=== PATIENT | female | born 1990 | race Caucasian/White ===

== ENCOUNTER 2020-06-14 10:59 | Outpatient (CLI) | payer OTHER ==
[2020-06-14 15:12] LABS: BASOPHILS % (AUTO) 0.6 %; EOSINOPHILS # (AUTO) 0.1 10^3/uL (0.0-0.7); EOSINOPHILS % (AUTO) 0.9 %; HCT - HEMATOCRIT 40.3 % (37.0-47.0); LYMPHOCYTES # (AUTO) 1.6 10^3/uL (1.5-3.5); LYMPHOCYTES % (AUTO) 29.1 %; MEAN CORPUSCULAR HEMOGLOBIN 31.1 pg (27.0-31.0); MEAN CORPUSCULAR HGB CONC 32.3 g/dL (32.0-36.0); MEAN CORPUSCULAR VOLUME 96.4 fL (81.0-99.0); MONOCYTES # (AUTO) 0.5 10^3/uL (0.0-1.0); MONOCYTES % (AUTO) 8.8 %; NEUTROPHILS # (AUTO) 3.3 10^3/uL (1.5-6.6); NEUTROPHILS % (AUTO) 60.4 %; PLT - PLATELET COUNT 288 10^3/uL (130-450); RED BLOOD COUNT 4.18 10^6/uL (4.20-5.40); RED CELL DISTRIBUTION WIDTH 12.5 % (12.0-15.0); WHITE BLOOD COUNT 5.4 x10^3/uL (4.8-10.8)
[2020-06-14 15:50] LABS: ALBUMIN 4.6 g/dL (3.2-5.5); ALBUMIN/GLOBULIN RATIO 1.4 (1.0-2.2); ALKALINE PHOSPHATASE 48 IU/L (42-121); ALT ALANINE AMINOTRANSFERASE 27 IU/L (10-60); AST ASPARTATE AMINOTRANSFERASE 26 IU/L (10-42); BILIRUBIN,TOTAL 1.1 mg/dL (0.2-1.0); BUN - BLOOD UREA NITROGEN 15 mg/dL (6-20); CALCIUM 9.5 mg/dL (8.5-10.3); CARBON DIOXIDE - CO2 23 mmol/L (21-32); CHLORIDE 103 mmol/L (101-111); CHOL/HDL RATIO 2.7 (<4.4); CHOLESTEROL 202 mg/dL; CREATININE 0.7 mg/dL (0.4-1.0); GFR - MDRD 97 (>89); GLUCOSE 102 mg/dL (70-100); HDL CHOLESTEROL 76 mg/dL; LDL CHOLESTEROL,CALCULATED 106 mg/dL; LDL/HDL RATIO 1.4 (<4.4); POTASSIUM 3.9 mmol/L (3.5-5.0); SODIUM 136 mmol/L (135-145); TOTAL PROTEIN 7.8 g/dL (6.7-8.2); TRIGLYCERIDES 100 mg/dL; VLDL CHOLESTEROL 20 mg/dL
[2020-06-14 16:26] LABS: THYROID STIMULATING HORMONE 1.15 uIU/mL (0.34-5.60)
== END 2020-06-14 11:00 | disposition home or self-care (01) ==
LOC: LAB.S 10:59
PROVIDERS: ATTEND Registered Nurse
DX: E78.5 Hyperlipidemia, unspecified (principal); J42 Unspecified chronic bronchitis
CPT/HCPCS: 36415; 80053; 80061; 83721; 84443; 85025

== ENCOUNTER 2021-01-18 08:00 | Outpatient (CLI) | payer OTHER ==
[2021-01-18 16:35] LABS: BILIRUBIN,URINE NEGATIVE (NEGATIVE); GLUCOSE, URINE (UA) NEGATIVE (NEGATIVE); KETONES,URINE (UA) NEGATIVE (NEGATIVE); LEUKOCYTE ESTERASE, URINE NEGATIVE (NEGATIVE); NITRITE,URINE POSITIVE (NEGATIVE); OCCULT BLOOD,URINE TRACE-INTA (NEGATIVE); PH,URINE 5.5 PH (5.0-7.5); PROTEIN,URINE NEGATIVE (NEGATIVE); UROBILINOGEN,URINE 0.2 (NORMAL) E.U./dL (NORMAL)
[2021-01-18 16:44] LABS: CLARITY,URINE CLEAR (CLEAR)
[2021-01-18 16:55] LABS: BACTERIA,URINE Moderate /HPF (None Seen); RBC,URINE None Seen /HPF (0-5); SQUAMOUS EPITHELIAL CELL,UR MOD Squamous (<= Few); WBC,URINE 0-3 /HPF (0-5)
== END 2021-01-18 23:59 | disposition home or self-care (01) ==
LOC: LAB 08:00
PROVIDERS: ATTEND Nurse Practitioner Obstetrics & Gynecology
DX: Z32.01 Encounter for pregnancy test, result positive (principal)
CPT/HCPCS: 81001; 87086

== ENCOUNTER 2021-01-24 16:06 | Outpatient (CLI) | payer OTHER ==
--- NOTE | 2021-01-25 08:43 | Ultrasound Report ---
PROCEDURE: OB First Trimester w/TV INDICATIONS: POSTIVIE TEST OUTSIDE/PRIOR DATING DATA: Last menstrual period (LMP): December 07, 2020. LMP-based estimated date of delivery (BOLA): September 13, 2021. First dating scan (date and location): [facility]; January 25, 2021. Estimated date of delivery (BOLA) from first dating scan: September 15, 2021. The below data below was generated using the ultrasound BOLA of September 15, 2021 TECHNIQUE: Real-time scanning was performed of the fetus and maternal pelvic organs, with image documentation. Endovaginal scanning was also performed to better visualize the fetus and maternal ovaries. COMPARISON: FINDINGS: Embryo: The crown-rump length measures 7 mm, compatible with a 6 week, 4 day gestation. Heart rate: 123 bpm. Measurement variability in dating: +/- 4 weeks by LMP, +/- 7 days by mean sac diameter (use before 6 weeks gestation if crown-rump length not able to be measured), +/- 5 days by crown-rump length (6-12 weeks gestation). Maternal organs: A 1.2 x 0.9 x 0.7 cm hypoechoic area is seen adjacent to the gestational sac, compatible subchorionic hemorrhage. A predominantly isoechoic lesion is seen within the right ovary, measuring up to 2 cm, which may refl ect a corpus luteum. A hypoechoic lesion is seen within the left ovary, measuring up to 1.7 cm, most consistent with a cys t. IMPRESSION: 1.Early single live intrauterine gestation as detailed above. Reviewed by: Blayne Garcia MD on 01/25/2021 8:42 AM PDT Approved by: Blayne Garcia MD on 01/25/2021 8:42 AM PDT Station ID: [id number]
== END 2021-01-24 16:07 | disposition home or self-care (01) ==
LOC: DI 16:06
PROVIDERS: ATTEND Nurse Practitioner Obstetrics & Gynecology
DX: Z32.01 Encounter for pregnancy test, result positive (principal)

== ENCOUNTER 2021-02-15 16:35 | Outpatient (CLI) | payer OTHER ==
[2021-02-15 23:03] LABS: CHLAMYDIA TRACHOMATIS DNA NEGATIVE (NEGATIVE); NEISSERIA GONORRHOEAE DNA NEGATIVE (NEGATIVE); TRICHOMONAS VAGINALIS DNA NEGATIVE (NEGATIVE)
== END 2021-02-15 16:36 | disposition home or self-care (01) ==
LOC: LAB 16:35 → LAB.R 16:36
PROVIDERS: ATTEND Nurse Practitioner Obstetrics & Gynecology
DX: Z11.3 Encounter for screening for infections with a predominantly sexual mode of transmission (principal)
CPT/HCPCS: 87491; 87591; 87661

== ENCOUNTER 2021-02-20 09:57 | Outpatient (CLI) | payer OTHER ==
[2021-02-20 10:24] LABS: BASOPHILS # (AUTO) 0.1 10^3/uL (0.0-0.1); BASOPHILS % (AUTO) 0.5 %; EOSINOPHILS # (AUTO) 0.1 10^3/uL (0.0-0.7); EOSINOPHILS % (AUTO) 0.7 %; HCT - HEMATOCRIT 39.7 % (37.0-47.0); HGB - HEMOGLOBIN 13.6 g/dL (12.0-16.0); LYMPHOCYTES # (AUTO) 1.9 10^3/uL (1.5-3.5); LYMPHOCYTES % (AUTO) 18.1 %; MEAN CORPUSCULAR HGB CONC 34.3 g/dL (32.0-36.0); MEAN CORPUSCULAR VOLUME 93.4 fL (81.0-99.0); MEAN PLATELET VOLUME 10.8 fL (7.9-10.8); MONOCYTES # (AUTO) 0.7 10^3/uL (0.0-1.0); MONOCYTES % (AUTO) 6.6 %; NEUTROPHILS # (AUTO) 7.6 10^3/uL (1.5-6.6); NEUTROPHILS % (AUTO) 73.7 %; PLT - PLATELET COUNT 314 10^3/uL (130-450); RED BLOOD COUNT 4.25 10^6/uL (4.20-5.40); RED CELL DISTRIBUTION WIDTH 12.5 % (12.0-15.0); WHITE BLOOD COUNT 10.3 x10^3/uL (4.8-10.8)
[2021-02-20 18:01] LABS: CHLAMYDIA TRACHOMATIS DNA NEGATIVE (NEGATIVE); NEISSERIA GONORRHOEAE DNA NEGATIVE (NEGATIVE); TRICHOMONAS VAGINALIS DNA NEGATIVE (NEGATIVE)
[2021-02-21 09:21] LABS: HEPATITIS B SURFACE ANTIGEN NON-REACTIVE (NON-REACTIVE)
[2021-02-21 09:22] LABS: HEPATITIS C ANTIBODY NON-REACTIVE (NON-REACTIVE)
[2021-02-21 15:16] LABS: HIV AG/AB 4TH GEN NON-REACTIVE (NON-REACTIVE)
== END 2021-02-20 09:58 | disposition home or self-care (01) ==
LOC: LAB 09:57
PROVIDERS: ATTEND Nurse Practitioner Obstetrics & Gynecology
DX: Z36.89 Encounter for other specified antenatal screening (principal)
CPT/HCPCS: 36415; 85025; 86592; 86762; 86787; 86803; 86850; 86900; 86901; 87340; 87389; 87491; 87591; 87661

== ENCOUNTER 2021-03-31 13:29 | Outpatient (CLI) | payer OTHER ==
[2021-04-03 09:01] LABS: AFP MOM 0.63; AGE RISK DOWN SYNDROME 1 IN 442; CALC'D GESTATIONAL AGE 16.3 weeks; CIGARETTE SMOKER? NOT GIVEN; DONOR AGE: EGG RETRIEVAL NOT GIVEN; DONOR EGG NO; ESTRIOL MOM 1.07; HCG MOM 0.56; HX OF NEURAL TUBE DEFECTS NO; INHIBIN A MOM 0.56; INSULIN DEPEND DIABETIC NO; MATERNAL WEIGHT 154 lbs; MSS DOWN SYNDROME RISK <1 IN 5000; MSS3 TRISOMY 18 RISK <1 IN 5000; NUMBER OF FETUSES 1; PREV PREGNANCY DOWN SYND NO; RISK FOR ONTD <1 IN 5000
== END 2021-03-31 13:30 | disposition home or self-care (01) ==
LOC: LAB 13:29
PROVIDERS: ATTEND Nurse Practitioner Obstetrics & Gynecology
DX: Z36.8A Encounter for antenatal screening for other genetic defects (principal)
CPT/HCPCS: 36415; 81511

== ENCOUNTER 2021-04-26 12:32 | Outpatient (CLI) | payer OTHER ==
--- NOTE | 2021-04-26 16:56 | Ultrasound Report ---
PROCEDURE: OB Detailed Eval INDICATIONS: SUPERVISION NORMAL OUTSIDE/PRIOR DATING DATA: Last menstrual period (LMP): 12/07/2020. LMP-based estimated date of delivery (BOLA): 09/13/2021. First dating scan (date and location): 01/24/2021. Estimated date of delivery (BOLA) from first dating scan: 09/15/2021. The below data below was generated using the ultrasound BOLA of 09/15/2021 TECHNIQUE: Real-time scanning was performed of the fetus, with image documentation and biometric measurements. Endovaginal scanning: Not performed. COMPARISON: Ultrasound 01/24/2021. FINDINGS: General: A single living intrauterine gestation is present. Presentation: Variable, transverse Placenta: Placental position is anterior, without previa. Amniotic fluid index: 12.5 cm, normal for gestational age. Largest pocket 3.6 cm. heart rate: 155 beats per minute. Maternal cervical canal: 5.3 cm long; normal length is 2.5 cm or more. biometrics: Biparietal diameter: 4.3 cm, 19 weeks 1 day Head circumference: 17.3 cm, 19 weeks 6 days Abdominal circumference: 15.2 cm, 20 weeks 3 days Femur length: 3.3 cm, 20 weeks 1 day Estimated gestational age from initial scan: 19 weeks 5 days Composite gestational age from present scan: 19 weeks 6 days Estimated weight and percentile: 339 g, 74th percentile Measurement variability in biometric dating: +/- 10 days from 12-20 weeks gestation, +/- 2 weeks from 20-30 weeks gestation, +/- 3 weeks at 30 weeks gestation or later. Anatomic survey: Neuro: Ventricles are normal at less than 10 mm. Cisterna magna is normal at 3-11 mm. Cerebellum i s normal in size and morphology. Nuchal skin fold: Normal at less than 6 mm between 14 and 20 weeks gestational age. Face: Nose and lips, facial profile are normal. Spine: Not well seen. Heart: 4-chambered heart is present. Outflow tracts not well seen. Diaphragm: Diaphragm is intact. Stomach: Left-sided stomach is present. Kidneys: No hydronephrosis. Normal is less than 5 mm in 2nd trimester, less than 7 mm in 3rd trimester. Cord: 3 vessel cord has orthotopic insertion. Bladder: Normal in size. Extremities: All 4 extremities are visualized. Right corpus luteum measuring 1.9 cm. Left ovarian cyst measuring 1.4 cm. IMPRESSION: 1. Cooper living intrauterine at 19 weeks 6 days based on today's ultrasound. This is co ncordant with the first trimester ultrasound. There is expected interval growth. Fetus is in the 74th percentile for weight. 2. Normal placenta and amniotic fluid. 3. The spine and cardiac outflow tracts are not well seen. Otherwise normal anatomic surv ey. Recommend follow-up OB ultrasound. Reviewed by: Huan Abraham MD on 04/26/2021 4:55 PM PST Approved by: Huan Abraham MD on 04/26/2021 4:55 PM PST Station ID: [id number]
== END 2021-04-26 12:33 | disposition home or self-care (01) ==
LOC: DI 12:32
PROVIDERS: ATTEND Nurse Practitioner Obstetrics & Gynecology
DX: Z34.92 Encounter for supervision of normal pregnancy, unspecified, second trimester (principal); Z3A.19 19 weeks gestation of pregnancy

== ENCOUNTER 2021-05-10 14:48 | Outpatient (CLI) | payer OTHER ==
--- NOTE | 2021-05-11 12:12 | Ultrasound Report ---
PROCEDURE: OB F/U or Repeat INDICATIONS: SUPERVISION OF NORMAL OUTSIDE/PRIOR DATING DATA: Last menstrual period (LMP): 12/07/2020. LMP-based estimated date of delivery (BOLA): 09/13/2021. First dating scan (date and location): 01/24/2021. Estimated date of delivery (BOLA) from first dating scan: 09/15/2021. The below data below was generated using the study generated BOLA of 09/15/2021 TECHNIQUE: Real-time scanning was performed of the fetus, with image documentation and biometric measurements. Endovaginal scannin indicated COMPARISON: 04/26/2021 and 01/24/2021 FINDINGS: General: A single living intrauterine gestation is present. Presentation: Breech Placenta: Placental position is anterior, without previa. Amniotic fluid index: 13.9 cm, 3.9 for gestational age. heart rate: 145 beats per minute. Maternal cervical canal: 5 cm long; normal length is 2.5 cm or more. Estimated gestational age from initial scan: 21 weeks, 5 days. Other: spine and outflow tracts are visualized and are within normal limits. chest, stoma ch, bilateral kidneys and urinary bladder are visualized and are within normal limits. IMPRESSION: 1. Single live intrauterine with fetus in breech presentation. heart rate is 145 bpm. Normal amount of amniotic fluid with SUJATHA was 13.9 cm. 2. Normal-appearing spine and outflow tracts on the current study. Reviewed by: Del Newton MD on 05/11/2021 12:10 PM PST Approved by: Del Newton MD on 05/11/2021 12:10 PM PST Station ID: [id number]
== END 2021-05-10 14:49 | disposition home or self-care (01) ==
LOC: DI 14:48
PROVIDERS: ATTEND Nurse Practitioner Obstetrics & Gynecology
DX: O32.1XX0 Maternal care for breech presentation, not applicable or unspecified (principal); Z36.89 Encounter for other specified antenatal screening; Z3A.21 21 weeks gestation of pregnancy

== ENCOUNTER 2021-08-18 17:00 | Outpatient (CLI) | payer OTHER | END 2021-08-18 23:59 | disposition home or self-care (01) | LOC: LAB.WC 17:00 | PROVIDERS: ATTEND Obstetrics & Gynecology | DX: Z36.85 Encounter for antenatal screening for Streptococcus B (principal) | CPT/HCPCS: 87797 ==

== ENCOUNTER 2021-08-19 21:19 | Outpatient (CLI) | payer OTHER ==
[2021-08-19 21:54] LABS: HCT - HEMATOCRIT 32.9 % (37.0-47.0); HGB - HEMOGLOBIN 10.6 g/dL (12.0-16.0); MEAN CORPUSCULAR HEMOGLOBIN 28.6 pg (27.0-31.0); MEAN CORPUSCULAR HGB CONC 32.2 g/dL (32.0-36.0); MEAN CORPUSCULAR VOLUME 88.7 fL (81.0-99.0); MEAN PLATELET VOLUME 12.2 fL (7.9-10.8); RED BLOOD COUNT 3.71 10^6/uL (4.20-5.40)
[2021-08-19 22:07] LABS: ALBUMIN 3.2 g/dL (3.2-5.5); ALBUMIN/GLOBULIN RATIO 0.9 (1.0-2.2); BILIRUBIN,TOTAL 0.4 mg/dL (0.2-1.0); CREATININE 0.6 mg/dL (0.4-1.0); POTASSIUM 3.7 mmol/L (3.5-5.0); TOTAL PROTEIN 6.8 g/dL (6.7-8.2)
[2021-08-19 22:41] LABS: RUPTURE OF MEMBRANES PLUS NEGATIVE (NEGATIVE)
--- NOTE | 2021-08-19 22:51 | PROVIDER PROGRESS NOTE ---
- HPI Chief Complaint: Leakage of vaginal fluid - Exam GEN: NAD CV: Tachycardic Resp: Breathing unlabored Abd: soft, nt : Speculum- no pooling, ROMPlus collected and negative Ext: +1 edema - Procedures OB Procedure Performed: NST Diagnosis/Indication for NST: labor NST Procedure: EFM: 130s, moderate variability, positive 15x15 accelerations, no decelerations [place]: one contraction Cat 1/NST reactive Service Date of procedure: 08/19/21 - Plan Plan: 31yo at 36.3w presenting with leaking fluid this morning and not sure if it was discharge. Occasional mild contractions. Denies vaginal bleeding. Good FM. Denies headache, visual changes, abdominal pains. - False labor, membranes intact - BP 140s/90s. Labs benign, follow up PCR. Follow up appt this week, recheck BP. - NST reactive - Discharge to home, labor and preeclampsia precautions
[2021-08-19 22:59] LABS: CREATININE,URINE 67.2 mg/dL; PROTEIN/CREATININE RATIO,URINE 0.2 (<=0.2)
[2021-08-19 23:23] VITALS: BP 125/80
== END 2021-08-19 22:53 | disposition home or self-care (01) ==
LOC: WFO 21:19 → FBP 21:20 → WFO 22:53
PROVIDERS: ATTEND Obstetrics & Gynecology
DX: O47.03 False labor before 37 completed weeks of gestation, third trimester (principal); Z3A.36 36 weeks gestation of pregnancy
CPT/HCPCS: 36415; 80053; 82570; 84112; 84156; 85027; 99215

== ENCOUNTER 2021-09-04 17:00 | Inpatient (IN) | payer OTHER ==
[2021-09-04 17:23] LABS: BILIRUBIN,URINE NEGATIVE (NEGATIVE); GLUCOSE, URINE (UA) NEGATIVE (NEGATIVE); KETONES,URINE (UA) NEGATIVE (NEGATIVE); LEUKOCYTE ESTERASE, URINE NEGATIVE (NEGATIVE); NITRITE,URINE NEGATIVE (NEGATIVE); OCCULT BLOOD,URINE NEGATIVE (NEGATIVE); PH,URINE 5.5 PH (5.0-7.5); PROTEIN,URINE NEGATIVE (NEGATIVE); UROBILINOGEN,URINE 0.2 (NORMAL) E.U./dL (NORMAL)
[2021-09-04 17:27] LABS: BASOPHILS % (AUTO) 0.2 %; EOSINOPHILS % (AUTO) 0.3 %; HCT - HEMATOCRIT 34.5 % (37.0-47.0); HGB - HEMOGLOBIN 11.2 g/dL (12.0-16.0); LYMPHOCYTES # (AUTO) 1.7 10^3/uL (1.5-3.5); LYMPHOCYTES % (AUTO) 16.8 %; MEAN CORPUSCULAR HEMOGLOBIN 28.2 pg (27.0-31.0); MEAN CORPUSCULAR HGB CONC 32.5 g/dL (32.0-36.0); MEAN CORPUSCULAR VOLUME 86.9 fL (81.0-99.0); MONOCYTES # (AUTO) 0.8 10^3/uL (0.0-1.0); MONOCYTES % (AUTO) 7.7 %; NEUTROPHILS # (AUTO) 7.6 10^3/uL (1.5-6.6); NEUTROPHILS % (AUTO) 73.8 %; PLT - PLATELET COUNT 249 10^3/uL (130-450); RED BLOOD COUNT 3.97 10^6/uL (4.20-5.40); RED CELL DISTRIBUTION WIDTH 14.1 % (12.0-15.0); WHITE BLOOD COUNT 10.3 x10^3/uL (4.8-10.8)
[2021-09-04 17:28] LABS: CLARITY,URINE CLEAR (CLEAR)
[2021-09-04 17:33] LABS: CREATININE,URINE 111.6 mg/dL; PROTEIN/CREATININE RATIO,URINE 0.1 (<=0.2)
[2021-09-04 17:38] LABS: ALBUMIN 3.2 g/dL (3.2-5.5); ALBUMIN/GLOBULIN RATIO 0.8 (1.0-2.2); BILIRUBIN,TOTAL 0.5 mg/dL (0.2-1.0); CALCIUM 9.9 mg/dL (8.5-10.3); CREATININE 0.6 mg/dL (0.4-1.0); POTASSIUM 3.8 mmol/L (3.5-5.0); TOTAL PROTEIN 7.3 g/dL (6.7-8.2)
[2021-09-04] MEDS ORDERED: CARBOPROST TROMETHAMINE 250 MCG/ML AMP IM PRN (19:15)
[2021-09-04] MEDS ORDERED: hydrALAZINE INJ 20 MG/ML VIAL IVP PRN ×2 (19:15)
[2021-09-04] MEDS ORDERED: NIFEdipine 10 MG CAPSULE PO PRN (19:15)
[2021-09-04] MEDS ORDERED: LABETALOL 20 MG/4 ML SYRINGE IVP PRN ×3 (19:15)
[2021-09-04] MEDS ORDERED: LIDOCAINE-MPF 1% 30 ML VIAL ID PRN (19:15)
[2021-09-04] MEDS ORDERED: fentaNYL 100 MCG/2 ML VIAL IVP PRN (19:15)
[2021-09-04] MEDS ORDERED: miSOPROStoL 200 MCG TABLET BC PRN (19:15)
[2021-09-04] MEDS ORDERED: SODIUM CHLORIDE FLUSH 0.9% 10 ML SYRINGE IVP PRN (19:15)
[2021-09-04] MEDS ORDERED: miSOPROStoL 200 MCG TABLET PR PRN (19:15)
[2021-09-04] MEDS ORDERED: TRANEXAMIC ACID IN NACL 1,000 MG/100 ML BAG IV PRN (19:15)
[2021-09-04] MEDS ORDERED: TERBUTALINE 1 MG/ML VIAL SUBQ PRN (19:15)
[2021-09-04] MEDS ORDERED: OXYTOCIN 10 UNIT/ML VIAL IM PRN (19:15)
[2021-09-04] MEDS ORDERED: OXYTOCIN/SODIUM CHLORIDE 500 ML IV PRN (19:15)
--- NOTE | 2021-09-04 19:21 | HISTORY & PHYSICAL EXAMINATION ---
Admit History - Visit Reason Visit Reason: Other (Elevated Blood pressure Patient was sent from clinic by Dr. Parrish for elevated blood pressures noted. She has no complaints. She denies headaches vision changes or abdominal pain. She was noted to have elevated blood pressures 2 weeks ago when she presented to labor and delivery to rule out r) - : 1 Parity: 0 Care: positive: [facility] Risk/History: positive: None Complications This : positive: None - Mother's Labs Mother's RH: positive: Positive GBS: positive: Group B Step Negative - Other Maternal History Other Maternal History: Past medical historyasthma? Past surgical history wisdom tooth extraction Allergies- no known drug allergies A+ Rubella- immune RPR- negative Hep B- negative HIV- negative GBS- negative 1 hr- 128 Meds/Allgy - Allergies Allergies/Adverse Reactions: Allergies Allergy/AdvReac Type Severity Reaction Status Date / Time cinnamon Allergy Anaphylaxis Verified 09/04/21 18:10 Physical - Abdominal Exam Vital Signs: Temp Pulse Resp BP Pulse Ox 99.2 F 105 H 18 115/81 H 09/04/21 17:15 09/04/21 17:15 09/04/21 17:15 09/04/21 18:25 - Monitoring Strip Review: positive: Category I - Presentation Presentation: positive: Vertex - Vaginal Exam Membranes: positive: Membranes intact Dilation (in cm): 1 Effacement (%): 25 Station: positive: -3 Cervical Position: positive: Midposition Plan for Labor - Plan For Labor Plan for Labor: . 31-year-old G1, P0 at 38 weeks 5 days with gestational hypertension admitted for induction of labor #Induction of labor-SVE 1/25%/-3, confirmed cephalic on bedside ultrasound. Plan for Aviles bulb placement. #Gestational hypertension-Based on elevated blood pressures of greater than 140s over 90s on 2 occasions. Blood pressures currently within normal limits. I discussed the recommendation for induction of labor after 37 weeks for gestational hypertension with the patient. She is agreeable to the plan. We will continue to monitor blood pressures. Labs within normal limits. #38 weeks gestation- GBS negative, induction of labor as above. Patient with spontaneous rupture of membranes just prior to Aviles bulb placement. SVE was 1/25/-3. Contraction currently noted to 2 to 5 minutes. We will start Pitocin if contractions spaced out. Epidural once patient desires.
[2021-09-04] MEDS: LACTATED RINGERS 1,000 ML IV SCH (23:33)
[2021-09-05] MEDS ORDERED: ROPIVACAINE 0.2% 200 MG/100 ML BAG EP ONE (03:30)
[2021-09-05] MEDS ORDERED: ePHEDrine 50 MG/ML VIAL IVP PRN (04:04)
[2021-09-05] MEDS ORDERED: NALOXONE 0.4 MG/ML VIAL IVP PRN (04:04)
[2021-09-05] MEDS ORDERED: NALBUPHINE 10 MG/ML AMP IVP PRN (04:04)
[2021-09-05] MEDS ORDERED: ONDANSETRON 4 MG/2 ML VIAL IVP PRN (04:04)
[2021-09-05] MEDS ORDERED: diphenhydrAMINE INJ 50 MG/ML VIAL IVP PRN (04:04)
[2021-09-05] MEDS ORDERED: METOCLOPRAMIDE 10 MG/2 ML VIAL IVP PRN (04:04)
--- NOTE | 2021-09-05 04:09 | ANESTHESIA ---
Pre-Anesthesia VS, & Labs - Diagnosis term labor, IUP - Procedure epidural for Vital Signs: Temp Pulse Resp BP Pulse Ox 36.9 C 105 H 18 115/81 H 09/04/21 19:30 09/04/21 17:15 09/04/21 17:15 09/04/21 18:25 Height: 5 ft 3 in Weight (kg): 86.183 kg Body Mass Index: 33.6 BMI Classification: Obese - NPO Last Fluid Intake: t/o day Last Food Intake: full dinner - Is Patient ?: Yes - Lab Results Current Lab Results: Laboratory Tests 09/04/21 20:42: Blood Type A POSITIVE, Antibody Screen NEGATIVE 09/04/21 17:21: Sodium 135, Potassium 3.8, Chloride 103, Carbon Dioxide 18 L, Anion Gap 14.0 H, BUN 11, Creatinine 0.6, Estimated GFR (MDRD) 115, Glucose 80, Calcium 9.9, Total Bilirubin 0.5, AST 25, ALT 21, Alkaline Phosphatase 136 H, Total Protein 7.3, Albumin 3.2, Globulin 4.1, Albumin/Globulin Ratio 0.8 L 09/04/21 17:21: WBC 10.3, RBC 3.97 L, Hgb 11.2 L, Hct 34.5 L, MCV 86.9, MCH 28.2, MCHC 32.5, RDW 14.1, Plt Count 249, MPV 12.0 H, Neut # (Auto) 7.6 H, Lymph # (Auto) 1.7, [place] # (Auto) 0.8, Eos # (Auto) 0.0, Baso # (Auto) 0.0, Absolute Nucleated RBC 0.00, Nucleated RBC % 0.0 Fish Bones: 09/04/21 17:21 09/04/21 17:21 Home Medications and Allergies Active Medications Carboprost Tromethamine (Carboprost Tromethamine 250 Mcg/Ml Amp) 250 mcg IM .ONCE PRN PRN Reason: Hemorrhage Diphenhydramine HCl (Diphenhydramine Inj 50 Mg/Ml Vial) 12.5 - 25 mg IVP Q6HR PRN PRN Reason: ITCHING Ephedrine Sulfate (Ephedrine 50 Mg/Ml Vial) 5 mg IVP Q5M PRN PRN Reason: For SBP<100;give until SBP>100 Fentanyl (Fentanyl 100 Mcg/2 Ml Vial) 50 mcg IVP Q1H PRN PRN Reason: Severe Pain (score 7-10) Hydralazine HCl (Hydralazine Inj 20 Mg/Ml Vial) 5 - 10 mg IVP Q20M PRN; Protocol PRN Reason: SBP> or= 160 OR DBP> or= 110 Hydralazine HCl (Hydralazine Inj 20 Mg/Ml Vial) 10 mg IVP .ONCE PRN; Protocol PRN Reason: SBP> or= 160 OR DBP> or= 110 Oxytocin/Sodium Chloride (Pitocin/Sodium Chloride) 500 mls @ 999 mls/hr IV PRN PRN; Protocol PRN Reason: POST- HEMORR PREVENTION Tranexamic Acid (Tranexamic 1,000 Mg/100ml-Nacl) 1,000 mg in 100 mls @ 600 mls/hr IV Q30M PRN PRN Reason: EBL >1200mL and within 3hr Lactated Ringer's (Lr) 1,000 mls @ 125 mls/hr IV .Q8H AUDREY Last Admin: 09/04/21 23:33 Dose: 125 mls/hr Ropivacaine (Naropin 0.2%) 200 mg in 100 mls @ 0 mls/hr EP PRN PRN; Protocol PRN Reason: PAIN Labetalol HCl (Labetalol 20 Mg/4 Ml Syringe) 20 - 80 mg IVP Q10M PRN; Protocol PRN Reason: SBP> or= 160 OR DBP> or= 110 Labetalol HCl (Labetalol 20 Mg/4 Ml Syringe) 20 mg IVP .ONCE PRN; Protocol PRN Reason: SBP> or= 160 OR DBP> or= 110 Labetalol HCl (Labetalol 20 Mg/4 Ml Syringe) 20 - 40 mg IVP Q10M PRN; Protocol PRN Reason: SBP> or= 160 OR DBP> or= 110 Lidocaine HCl (Lidocaine-Mpf 1% 30 Ml Vial) 30 ml ID ONCE PRN PRN Reason: PERINEAL REPAIR Stop: 09/05/21 19:16 Metoclopramide HCl (Metoclopramide 10 Mg/2 Ml Vial) 10 mg IVP Q6HR PRN PRN Reason: Nausea / Vomiting Misoprostol (Misoprostol 200 Mcg Tablet) 600 mcg BC .ONCE PRN PRN Reason: Hemorrhage Misoprostol (Misoprostol 200 Mcg Tablet) 800 mcg MT .ONCE PRN PRN Reason: Hemorrhage Nalbuphine HCl (Nalbuphine 10 Mg/Ml Amp) 2.5 - 5 mg IVP Q4H PRN PRN Reason: ITCHING Naloxone HCl (Naloxone 0.4 Mg/Ml Vial) 0.1 mg IVP Q2M PRN PRN Reason: RR<8 Nifedipine (Nifedipine 10 Mg Capsule) 10 - 20 mg PO Q20M PRN; Protocol PRN Reason: SBP> or= 160 OR DBP> or= 110 Ondansetron HCl (Ondansetron 4 Mg/2 Ml Vial) 4 mg IVP Q6HR PRN PRN Reason: Nausea / Vomiting Oxytocin (Oxytocin 10 Unit/Ml Vial) 10 unit IM .ONCE PRN PRN Reason: Step One if no IV access. Sodium Chloride (Sodium Chloride Flush 0.9% 10 Ml Syringe) 10 ml IVP PRN PRN PRN Reason: NEEDED PER PROVIDER ORDERS Sodium Chloride (Sodium Chloride Flush 0.9% 10 Ml Syringe) 10 ml IVP Q8H AUDREY Terbutaline Sulfate (Terbutaline 1 Mg/Ml Vial) 0.25 mg SUBQ .ONCE PRN PRN Reason: Tachystole Allergies/Adverse Reactions: Allergies Allergy/AdvReac Type Severity Reaction Status Date / Time cinnamon Allergy Anaphylaxis Verified 09/04/21 18:10 Anes History & Medical History - Anesthetic History Anesthesia Complications: reports: No previous complications Family history of Anesthesia Complications: Denies Family history of Malignant Hyperthermia: Denies - Medical History Cardiovascular: reports: Hypertension (last few weeks of ) Pulmonary: reports: Asthma (as child, no meds) Endocrine/Autoimmune: reports: None Blood Disorders: reports: None Skin: reports: None Smoking Status: Never smoker History of Cancer?: No - Surgical History Other Past Surgical History: wisdom tooth extraction - Obstetrical History : 1 Parity: 0 Events: reports: None Complications: reports: None Exam General: Alert, Oriented x3, Cooperative Neck Mobility: Normal Mallampati classification: II Respiratory: No respiratory distress Cardiovascular: Regular rate Neurological: Normal speech Mental/Cognitive Status: Alert/Oriented X3, Normal for patient Cognitive Status: Within normal limits Plan Anesthesia Type: Epidural Consent for Procedure(s) Verified and Reviewed: Yes Code Status: Attempt Resuscitation ASA classification: 2-Mild systemic disease Is this case an emergency?: No
[2021-09-05] MEDS ORDERED: ROPIVACAINE 0.2% PF 10 ML VIAL ONE (04:45)
--- NOTE | 2021-09-05 05:12 | ANESTHESIA PROCEDURE NOTE ---
Anesthesia Epidural Template - Patient Report Patient Reports: positive: Inadequate control - Plan Plan: positive: Other - Other Comments Other Comments: Pt remains with c/o pain with contractions but states they are much better despite heavy breathing and shifting in bed with apparent discomfort. Previous epidural placed without incident but unable to obtain CSF with DPE. States pain is at 4/10 down from 6-7/10. Full sensation intact after assessment and patient able to fully move B LE. Options discussed with encouragement for replacement. Pt agrees. To sitting. L4-5 area prepped after prior epidural cath removed with tip intact. Lido 1% 3cc at site. Epidural needle to [id number]@7, unable to obtain CSF with [id number], cath to 14. Negative test dose at 0450. Bolus 10cc 0.2% ropi and pump to 10cc Q50 mins. Patient states pain relief 15 mins post bolus.
[2021-09-05] MEDS: LACTATED RINGERS 1,000 ML IV SCH ×2 (07:31→13:24)
--- NOTE | 2021-09-05 08:27 | PROVIDER PROGRESS NOTE ---
Labor Progress Note - Uterine Monitoring Uterine Monitoring Mode: positive: External toco Contraction Frequency (min/apart): 3 Contraction Intensity: positive: Mild Uterine Resting Tone: positive: Soft - Monitoring Monitor Mode: positive: External ultrasound Heart Rate Baseline: 140 Heart Rate Variability: positive: Moderate (6-25 bmp) Accelerations: positive: Present, 15x15 Decelerations: positive: None Strip Review: positive: Category I - Vaginal Exam Dilation (in cm): 2 Effacement (%): 75 Station: -2 Cervical Position: Midposition - Labor Progress Note Labor Progress Note/Additional Text: 31-year-old G1, P0 at 38 weeks 6 days admitted for induction of labor secondary to gestational hypertension. #Induction of laborSVE 2/ and -2. Contractions every 3 to 5 minutes. We will start Pitocin. SROM with clear fluid at approximately 2000.Rare variable decelerations. With periods of category 2 tracing currently category 1. #Gestational hypertensionblood pressures currently within normal limits. We will continue to monitor
[2021-09-05] MEDS ORDERED: OXYTOCIN/SODIUM CHLORIDE 500 ML IV SCH (08:45)
[2021-09-05] MEDS: ROPIVACAINE 0.2% 200 MG/100 ML BAG EP PRN ×3 (09:16→23:00)
--- NOTE | 2021-09-05 14:47 | ANESTHESIA PROCEDURE NOTE ---
Anesthesia Epidural Template - Patient Report Patient Reports: positive: Inadequate control - Other Comments Other Comments: Dermatome assessed at T-11. Patient reports pelvic pain with contraction. Educated patient regarding use of PCEA. Epidural bolused with 100 mcg fentanyl with 8ml of PF NS. Reports adequate control of labor pain.
[2021-09-05] MEDS ORDERED: fentaNYL 100 MCG/2 ML VIAL ONE (14:51)
[2021-09-05] MEDS ORDERED: SODIUM CHLORIDE 0.9% 10 ML VIAL IVP ONE (14:51)
[2021-09-05] MEDS: ACETAMINOPHEN 500 MG TABLET PO PRN ×2 (14:53→20:10)
--- NOTE | 2021-09-05 15:20 | PROVIDER PROGRESS NOTE ---
Labor Progress Note - Uterine Monitoring Uterine Monitoring Mode: positive: External toco Contraction Intensity: positive: Mild - Monitoring Accelerations: positive: Present, 15x15 Decelerations: positive: Variable, Intermittent (<50% x20 min) Strip Review: positive: Category II - Vaginal Exam Dilation (in cm): 4 Effacement (%): 75 Station: -2 Cervical Position: Midposition - Labor Progress Note Labor Progress Note/Additional Text: Patient with some discomfort with contractions. Epidural dose. Intermittent variables. FSE placed. Mild bloody show noted. We will continue to monitor. Variable deceleration resolved with repositioning. Pitocin titration in progress.
[2021-09-05] MEDS ORDERED: LIDOCAINE-MPF 1% 30 ML VIAL ONE (17:49)
--- NOTE | 2021-09-05 20:06 | PROVIDER PROGRESS NOTE ---
Labor Progress Note - Uterine Monitoring Uterine Monitoring Mode: positive: IUPC - Monitoring Monitor Mode: positive: Spiral electrode Heart Rate Baseline: 150 Heart Rate Variability: positive: Moderate (6-25 bmp) Accelerations: positive: Present, 15x15 Decelerations: positive: None Strip Review: positive: Category I - Vaginal Exam Dilation (in cm): 6 Effacement (%): 100 Station: -2 Cervical Position: Midposition - Labor Progress Note Labor Progress Note/Additional Text: Patient with pain therefore epidural was replaced. IUPC placed. Now 24 hours ruptured. Afebrile. Discussed monitoring for adequate contractions with the patient. Recommend section of no cervical change with adequate MVU. The patient is agreeable to the plan.
--- NOTE | 2021-09-06 01:00 | PROVIDER PROGRESS NOTE ---
Labor Progress Note - Uterine Monitoring Uterine Monitoring Mode: positive: IUPC (MVU adequate) Contraction Intensity: positive: Moderate to strong Uterine Resting Tone: positive: Soft - Monitoring Monitor Mode: positive: Spiral electrode Heart Rate Variability: positive: Moderate (6-25 bmp) Accelerations: positive: Present, 15x15 Decelerations: positive: Late, Variable, Intermittent (<50% x20 min) Strip Review: positive: Category II - Vaginal Exam Dilation (in cm): 9 Effacement (%): 100 Station: -2 Cervical Position: Midposition - Labor Progress Note Labor Progress Note/Additional Text: SVE 9/100/ 0 station. Strip reviewed with intermittent late decelerations and variables. Will resuscitate with repositioning, fluids and oxygen. Anticipate delivery soon.
[2021-09-06] MEDS: LACTATED RINGERS 1,000 ML IV SCH ×2 (01:16→05:51)
[2021-09-06] MEDS: ROPIVACAINE 0.2% 200 MG/100 ML BAG EP PRN (05:08)
[2021-09-06] MEDS ORDERED: AMPICILLIN 2 GM in SODIUM CHLORIDE 0.9% MINIBAG 100 ML IV ONE (06:30)
[2021-09-06] MEDS ORDERED: GENTAMICIN IV ONE ×2 (06:31→08:00)
[2021-09-06] MEDS ORDERED: SODIUM CHLORIDE 0.9% IV ONE ×2 (06:31→08:00)
--- NOTE | 2021-09-06 06:53 | PROVIDER PROGRESS NOTE ---
Labor Progress Note - Uterine Monitoring Uterine Monitoring Mode: positive: External toco Uterine Resting Tone: positive: Soft - Monitoring Monitor Mode: positive: Spiral electrode Heart Rate Variability: positive: Moderate (6-25 bmp) Accelerations: positive: Present, 15x15 Decelerations: positive: Late, Intermittent (<50% x20 min) Strip Review: positive: Category II - Vaginal Exam Dilation (in cm): 10 Effacement (%): 100 Station: -2 Cervical Position: Midposition - Labor Progress Note Labor Progress Note/Additional Text: Patient has progressed to complete cervical dilation. Status post pushing for approximately 2-1/2 hours. Intermittent late decelerations with response to resuscitation. I discussed the progress of the labor with the patient. The baby has made minimal descent while pushing. heart tones with late decelerations noted intermittently. Response to resuscitation. Her last estimated weight was in the 85th percentile. Following discussion of risk and benefits of vaginal delivery versus section, the patient has elected for primary section. All questions and concerns addressed. Consent signed. OR team notified. Of note the patient was given ampicillin and gentamicin for chorioamnionitis. We will give clindamycin in OR.
[2021-09-06] MEDS ORDERED: LIDOCAINE-MPF 2% 5 ML VIAL ONE ×2 (07:12→07:35)
[2021-09-06] MEDS ORDERED: ROPIVACAINE 0.5% PF 20 ML AMPULE ONE ×2 (07:12→08:22)
[2021-09-06] MEDS ORDERED: OXYTOCIN 10 UNIT/ML VIAL ONE ×2 (07:14→08:19)
[2021-09-06] MEDS ORDERED: NALOXONE 0.4 MG/ML VIAL IVP PRN ×2 (07:44→09:00)
[2021-09-06] MEDS ORDERED: fentaNYL 100 MCG/2 ML VIAL IVP PRN (07:44)
[2021-09-06] MEDS ORDERED: HYDROmorphone 0.5 MG/0.5 ML SYRINGE IVP PRN (07:44)
[2021-09-06] MEDS ORDERED: ONDANSETRON 4 MG/2 ML VIAL IVP PRN (07:44)
[2021-09-06] MEDS ORDERED: ePHEDrine 50 MG/ML VIAL IVP PRN (07:44)
[2021-09-06] MEDS ORDERED: ATROPINE ABBOJECT 1 MG/10 ML SYRINGE IVP PRN (07:44)
[2021-09-06] MEDS ORDERED: MORPHINE 2 MG/ML CARPUJECT IVP PRN (07:44)
[2021-09-06] MEDS ORDERED: METOCLOPRAMIDE 10 MG/2 ML VIAL IVP PRN (07:44)
[2021-09-06] MEDS ORDERED: ONDANSETRON 4 MG/2 ML VIAL ONE (07:48)
[2021-09-06] MEDS ORDERED: ACETAMINOPHEN 1,000 MG/100 ML 100 ML IV ONE (07:48)
[2021-09-06] MEDS ORDERED: KETOROLAC 30 MG/ML VIAL ONE (07:48)
[2021-09-06] MEDS ORDERED: LACTATED RINGERS 1,000 ML IV SCH ×2 (08:00→09:00)
[2021-09-06] MEDS ORDERED: CLINDAMYCIN 900 MG/50 ML 50 ML IV SCH (08:00)
[2021-09-06] MEDS ORDERED: fentaNYL 100 MCG/2 ML VIAL ONE (08:12)
[2021-09-06] MEDS ORDERED: PHENYLEPHRINE 10 MG/ML VIAL ONE (08:17)
[2021-09-06] MEDS ORDERED: SODIUM CHLORIDE 0.9% 10 ML VIAL IVP ONE (08:21)
[2021-09-06] MEDS ORDERED: DEXAMETHASONE 4 MG/ML VIAL ONE (08:27)
--- NOTE | 2021-09-06 08:37 | DELIVERY NOTE ---
Delivery Note - Labor Labor: positive: Induced by oxytocin - Infant Delivery Method Delivery Method: positive: Primary - Cervical Ripening Method Cervical Ripening Method: positive: Oxytocin - Presentation Presentation: positive: Vertex - Nuchal Cord Nuchal Cord: positive: None - Anesthetic Anesthetic Type: - Amniotic Fluid Description Amniotic Fluid Description: positive: Clear - Laceration Laceration: positive: None - Delivery Outcome Delivery Outcome: positive: Livebirth - Magazine Magazine: positive: Bulb syringe, Stimulated sex: positive: Female - Placenta Placenta: positive: Intact - Estimated Blood Loss Estimated Blood Loss (in cc): 1,000 - Post Delivery Events Post Delivery Events: positive: No post delivery events - Delivery Comments (Free Text/Narrative) Delivery Comments (Free Text/Narrative): Following informed consent the patient was taken to the operating room. Eoidural anesthesia was appropriately dosed for surgery by the anesthesia team. She was placed in supine position and prepped and draped in the usual sterile fashion. A Pfannenstiel incision was made and sharply taken down to the level of the fascia. The fascia was incised at the midline. The fascia was from the rectus muscle superiorly and inferiorly. The rectus muscle was at the midline. The peritoneal cavity was entered bluntly with care taken to avoid injury to underlying structures. An Gray retractor was placed to facilitate visualization. The vesicouterine reflection was developed sharply with care taken to avoid injury to the bladder. A low transverse hysterotomy was made. The hysterotomy was opened laterally and superiorly with digits. The head was noted to be engaged in the pelvis. The head was brought to the hysterotomy and the baby delivered without difficulty. The oropharynx was suctioned. The cord was doubly clamped and cut and the baby passed onto the awaiting riveter helper. A cord segment wast taken for cord gases. Cord blood was obtained. The placenta was delivered with fundal massage. The fundus was noted to be firm. The endometrial cavity was cleaned x2 using moist laps. A left lower segment extension was noted in the hysterotomy. The hysterotomy was repaired using chromic suture in a continuous locking fashion. Hemostasis was noted. The peritoneal cavity was copiously irrigated and hemostasis again noted. All instruments were removed.The fascia was closed using chromic suture PDS suture. The subcutaneous fat was irrigated and hemostasis noted. The skin was closed with Monocryl and dressed with Mastisol and Steri-Strips. The patient tolerated the procedure well and was taken to the recovery room in stable condition. APGARS 6 at 1 minute 9 at 5 minutes
[2021-09-06] MEDS ORDERED: LACTATED RINGERS 800 ML IV ONE (08:44)
--- NOTE | 2021-09-06 08:54 | OPERATIVE REPORT ---
Operative Report - General Admit Date: 09/04/21 Planned Procedure: Primary low-transverse section Pre-Op Diagnosis: 39 weeks gestation, gestational hypertension, Chorioamnionitis Procedure Performed: Primary low-transverse section Post Op Diagnosis: Status post primary low-transverse section - Procedure Note Primary Surgeon: Maliha Gaffney MD Secondary Surgeon: Jane Lees CNM Anesthesia Provider: ALESSANDRO Ann Anesthesia Technique: Epidural Pathology: None IV Fluids (mL): 1,000 Estimated Blood Loss (mL): 1,000 Indications: 39 weeks gestation, Suspected cephalopelvic disproportion Findings: Normal-appearing uterus bilateral fallopian tubes and ovaries. Small less than 1 cm paratubal cyst. Complications: None - Other Other Information/Narrative: Following informed consent the patient was taken to the operating room. Eoidural anesthesia was appropriately dosed for surgery by the anesthesia team. She was placed in supine position and prepped and draped in the usual sterile fashion. A Pfannenstiel incision was made and sharply taken down to the level of the fascia. The fascia was incised at the midline. The fascia was from the rectus muscle superiorly and inferiorly. The rectus muscle was at the midline. The peritoneal cavity was entered bluntly with care taken to avoid injury to underlying structures. An Gray retractor was placed to facilitate visualization. The vesicouterine reflection was developed sharply with care taken to avoid injury to the bladder. A low transverse hysterotomy was made. The hysterotomy was opened laterally and superiorly with digits. The head was noted to be engaged in the pelvis. The head was brought to the hysterotomy and the baby delivered without difficulty. The oropharynx was suctioned. The cord was doubly clamped and cut and the baby passed onto the awaiting finnish rubber. A cord segment wast taken for cord gases. Cord blood was obtained. The placenta was delivered with fundal massage. The fundus was noted to be firm. The endometrial cavity was cleaned x2 using moist laps. A left lower segment extension was noted in the hysterotomy. The hysterotomy was repaired using chromic suture in a continuous locking fashion. Hemostasis was noted. The peritoneal cavity was copiously irrigated and hemostasis again noted. All instruments were removed.The fascia was closed using chromic suture PDS suture. The subcutaneous fat was irrigated and hemostasis noted. The skin was closed with Monocryl and dressed with Mastisol and Steri-Strips. The patient tolerated the procedure well and was taken to the recovery room in stable condition. Jane Lees assisted in the procedure by retracting instruments and facilitating visualization in order to minimize risks during the procedure. Her assistance was necessary for completion of the procedure. APGARS 6 at 1 minute 9 at 5 minutes
[2021-09-06] MEDS ORDERED: OXYTOCIN/SODIUM CHLORIDE 500 ML IV PRN (09:00)
--- NOTE | 2021-09-06 10:13 | ANESTHESIA POST OP EVALUATION ---
Anesthesia Post Eval - Post Anesthesia Eval Vitals: Last Vital Signs Temp 36.5 C 09/06/21 09:05 Pulse 102 H 09/06/21 09:05 Resp 22 09/06/21 09:05 BP 112/92 H 09/06/21 09:05 Pulse Ox 98 09/06/21 09:05 CV Function Including HR & BP: Stable Pain Control: Satisfactory Nausea & Vomiting: Negative Mental Status: Baseline Respiratory Status: Airway Patent Hydration Status: Satisfactory Anesthesia Complications: None
[2021-09-06] MEDS: KETOROLAC 30 MG/ML VIAL IVP SCH ×2 (14:27→20:00)
[2021-09-06] MEDS: SODIUM CHLORIDE FLUSH 0.9% 10 ML SYRINGE IVP SCH ×5 (14:28→20:00)
[2021-09-06] MEDS: ACETAMINOPHEN 500 MG TABLET PO SCH (16:45)
[2021-09-06] MEDS: DOCUSATE SODIUM 100 MG CAPSULE PO SCH ×2 (19:39→20:00)
[2021-09-07] MEDS: ACETAMINOPHEN 500 MG TABLET PO SCH ×3 (00:42→21:00)
[2021-09-07] MEDS: KETOROLAC 30 MG/ML VIAL IVP SCH (02:04)
[2021-09-07] MEDS: SODIUM CHLORIDE FLUSH 0.9% 10 ML SYRINGE IVP SCH (02:05)
[2021-09-07 05:32] LABS: HCT - HEMATOCRIT 23.9 % (37.0-47.0); HGB - HEMOGLOBIN 7.5 g/dL (12.0-16.0); MEAN CORPUSCULAR HEMOGLOBIN 27.8 pg (27.0-31.0); MEAN CORPUSCULAR HGB CONC 31.4 g/dL (32.0-36.0); MEAN CORPUSCULAR VOLUME 88.5 fL (81.0-99.0); MEAN PLATELET VOLUME 11.7 fL (7.9-10.8); RED BLOOD COUNT 2.7 10^6/uL (4.20-5.40); RED CELL DISTRIBUTION WIDTH 14.6 % (12.0-15.0); WHITE BLOOD COUNT 20.3 x10^3/uL (4.8-10.8)
[2021-09-07] MEDS: oxyCODONE 5 MG TABLET PO PRN ×4 (08:39→22:45)
[2021-09-07] MEDS: DOCUSATE SODIUM 100 MG CAPSULE PO SCH ×2 (08:40→20:34)
[2021-09-07] MEDS: IBUPROFEN 600 MG TABLET PO SCH ×3 (08:40→20:34)
--- NOTE | 2021-09-07 09:32 | PROVIDER PROGRESS NOTE ---
Objective - Vital Signs/Intake & Output Vital Signs: Vital Signs x48h Temp Pulse Pulse Resp BP Pulse Ox 09/07/21 09:03 97.9 F 108 H 16 113/64 100 09/07/21 04:30 99.7 F 91 16 104/61 98 Intake & Output: Intake & Output 09/04/21 09/05/21 09/06/21 09/07/21 23:59 23:59 23:59 23:59 Intake Total 3546.416 1425 500 Output Total 1830 990 350 Balance 1716.416 435 150 - Lab Results Fish Bones: 09/07/21 05:21 09/04/21 17:21 Other Labs: Lab Results x24hrs 09/07/21 Range/Units 05:21 WBC 20.3 H (4.8-10.8) x10^3/uL RBC 2.70 L (4.20-5.40) 10^6/uL Hgb 7.5 L (12.0-16.0) g/dL Hct 23.9 L (37.0-47.0) % MCV 88.5 (81.0-99.0) fL MCH 27.8 (27.0-31.0) pg MCHC 31.4 L (32.0-36.0) g/dL RDW 14.6 (12.0-15.0) % Plt Count 220 (130-450) 10^3/uL MPV 11.7 H (7.9-10.8) fL
[2021-09-08] MEDS: IBUPROFEN 600 MG TABLET PO SCH ×3 (02:30→11:33)
[2021-09-08] MEDS: oxyCODONE 5 MG TABLET PO PRN ×2 (05:37→11:34)
[2021-09-08] MEDS: DOCUSATE SODIUM 100 MG CAPSULE PO SCH (08:54)
--- NOTE | 2021-09-08 11:31 | Discharge Plan ---
Discharge Plan Problem Reviewed?: Yes Disposition: Home, Self Care Condition: Stable Prescriptions: oxyCODONE [Roxicodone] 5 mg PO Q4HR PRN #30 tablet PRN Reason: Severe Pain 6 -10 Ibuprofen [Motrin] 600 mg PO Q6HR #30 tablet Docusate Sodium 100Mg Capsule [Colace 100Mg Capsule] 200 mg PO BID #30 tablet Ferrous Sulfate 325 mg PO BID #60 tab Diet: Regular Shower Restrictions: No Driving Restrictions: Yes (While taking narcotics ) No Smoking: If you smoke, Please STOP! Call for help. Follow-up with: Leighton Parrish MD [Provider Admit Priv/Credential] - 1 Week
[2021-09-08 11:41] LABS: BASOPHILS % (AUTO) 0.3 %; EOSINOPHILS # (AUTO) 0.2 10^3/uL (0.0-0.7); EOSINOPHILS % (AUTO) 1.6 %; HCT - HEMATOCRIT 25.9 % (37.0-47.0); HGB - HEMOGLOBIN 8.2 g/dL (12.0-16.0); LYMPHOCYTES # (AUTO) 2.5 10^3/uL (1.5-3.5); LYMPHOCYTES % (AUTO) 17.4 %; MEAN CORPUSCULAR HEMOGLOBIN 28.4 pg (27.0-31.0); MEAN CORPUSCULAR HGB CONC 31.7 g/dL (32.0-36.0); MEAN CORPUSCULAR VOLUME 89.6 fL (81.0-99.0); MEAN PLATELET VOLUME 10.9 fL (7.9-10.8); MONOCYTES # (AUTO) 0.9 10^3/uL (0.0-1.0); MONOCYTES % (AUTO) 6.4 %; NEUTROPHILS # (AUTO) 10.3 10^3/uL (1.5-6.6); PLT - PLATELET COUNT 284 10^3/uL (130-450); RED BLOOD COUNT 2.89 10^6/uL (4.20-5.40); RED CELL DISTRIBUTION WIDTH 14.6 % (12.0-15.0); WHITE BLOOD COUNT 14.2 x10^3/uL (4.8-10.8)
[2021-09-08 11:50] VITALS: BP 104/71
--- NOTE | 2021-09-08 11:53 | DISCHARGE SUMMARY ---
Discharge Summary Admit Date: 09/04/21 Discharge Date: 09/08/21 Discharging Provider: Maliha Gaffney MD Condition at Discharge: Stable Discharge Disposition: 01 Home, Self Care - DIAGNOSES Admission Diagnoses: Gestational hypertension, 38 weeks gestation Discharge Diagnoses with Status of Each Condition: Status post primary section - HOSPITAL COURSE Hospital Course: 31-year-old G1, P1 day 2 status post primary section. The patient was admitted at 38 weeks secondary to gestational hypertension. She und erwent induction of labor with Pitocin following SROM. After progressing to complete cervical dilation the patient pushed for 2 hours with minimal descent. She had periods of category 2 tracing And developed chorioamnionitis. Following counseling the patient elected for primary section. She underwent an uncomplicated low transverse section. She received antibiotics for chorioamnionitis.She met postoperative milestones. She was noted to be anemic postoperatively. She was asymptomatic. Her hemoglobin remained stable. She was stable for discharge on postop day 2 with recommendations for follow-up within 1 week for blood pressure check. - ALLERGIES Allergies/Adverse Reactions: Allergies Allergy/AdvReac Type Severity Reaction Status Date / Time cinnamon Allergy Anaphylaxis Verified 09/04/21 18:10 - MEDICATIONS Home Medications: Ambulatory Orders Medication Instructions Recorded Confirmed Docusate Sodium 100Mg Capsule 200 mg PO BID #30 tablet 09/08/21 [Colace 100Mg Capsule] Ferrous Sulfate 325 mg PO BID #60 tab 09/08/21 Ibuprofen [Motrin] 600 mg PO Q6HR #30 tablet 09/08/21 oxyCODONE [Roxicodone] 5 mg PO Q4HR PRN #30 tablet 09/08/21 - PHYSICAL EXAM AT DISCHARGE General Appearance: positive: No acute distress Abdomen: positive: Non-tender, Nml bowel sounds, Other (mildly distended but soft ). negative: Guarding, Rebound Extremities: positive: Non-tender - LABS Result Diagrams: 09/08/21 11:35 09/04/21 17:21
--- NOTE | 2021-09-08 16:53 | Labor Flowsheet ---
Labor Flowsheet Datetime Report Generated by CPN: 09/08/2021 16:53 Datetime: 09/06/2021 12:14 Membranes Ruptured Date/Time: 09/04/2021 19:57 Datetime: 09/06/2021 07:14 Patient Care Comments: To the OR with [employer] for C/S. Datetime: 09/06/2021 07:01 VITAL SIGNS NBP Sys/Mikala/Mean (mmHg): 114 : 64 : 76 Pulse: 91 PAIN Pain Scale: 2 Pain Presence: Intermittent Pain Type: Sharp; Contraction Pain Location: Left Hip Pain Goal: 4 Pain Relief Measures: Epidural Given; Comfort Measures Pain Coping: Breathing Through Contractions Anesthesia Level Check: T8- Ribs LaborFlag: Labor Datetime: 09/06/2021 07:00 UTERINE ACTIVITY Monitor Mode: External Frequency (min): 3-4 Quality: Moderate Duration (sec): 45-60 Pattern: Normal: <= 5 Contractions in 10 Minutes Resting Tone (Palpate): Relaxed ASSESSMENT A Monitor Mode: Internal Scalp Electrode FHR Baseline Rate : 150 FHR Baseline Changes: No Baseline Change Variability: Moderate 6-25 bpm Accelerations: 15X15 Decelerations: None Category: Category I Vibroacoustic Stim: Datetime: 09/06/2021 06:49 Antibiotics: Ampicillin IV 2 Gm Datetime: 09/06/2021 06:45 Contraction Comments: Pt repositioned to LLP; no longer pushing with UCs Datetime: 09/06/2021 06:33 MEDICATIONS Pitocin (milliunits): Discontinued Datetime: 09/06/2021 06:30 Actions for Decelerations: Side to Side; Pitocin Off; IV Bolus Datetime: 09/06/2021 06:24 Temperature (C): 37.9 Datetime: 09/06/2021 06:15 Unit Routine: Unit Personnel; Safety/Fall Risk Prevention; Medications Medications: Antibiotics Datetime: 09/06/2021 05:59 I/O Interventions: Straight Cath (ml) @ 100ml Datetime: 09/06/2021 05:37 COMMUNICATION Communication: Provider at Bedside Provider Notified (Name): Dr Fossil Datetime: 09/06/2021 05:30 Comments: Continuing to push every other UC Datetime: 09/06/2021 05:24 Oxygen Amount (LPM): 10 Datetime: 09/06/2021 05:15 Pitocin Checklist: At Least 1 Acceleration of 15 bpm x 15 Seconds in 30 Minutes or Adequate Variabi lity; No More than 1 Late Deceleration Occurred in Past 30 Minutes; No More than 2 Variable Decelerat ions > 60 Seconds in Duration and decreasing >60 bpm in 30 minutes; No More than 5 Uterine Contractio ns in 10 Minutes for any 20 Minute Interval; Uterus Palpates Soft between Contractions Datetime: 09/06/2021 05:00 Monitor Interventions for UA: [place] Adjusted Datetime: 09/06/2021 04:43 Patient Position/Activity: Right Lateral Datetime: 09/06/2021 04:01 Temperature Route: Oral Datetime: 09/06/2021 03:54 Communication Comments: Pedi in to meet parents Datetime: 09/06/2021 03:50 Exam by: Dr Amagwula Vaginal Exam Comments: OP presentation likely per OB Provider Reviewed Strip: Yes TEACHING Instructional Method: Demo; Verbal; Patient Instructed; Family/Support Person Instructed; Verbalize d Understanding Plan of Care: Vaginal Delivery Labor/Induction: Pushing Methods Datetime: 09/06/2021 03:30 Resting Tone IUP (mmHg): 22-30 Intensity IUP (mmHg): 60-80 Datetime: 09/06/2021 03:23 VAGINAL EXAM Dilatation (cm): 10.0 Effacement (%): 100 Station: 2 Datetime: 09/06/2021 03:15 MONTEVIDEO UNITS (Computed) Contractions in Ten Minutes: 5 IUPC Average Intensity: 70 IUPC Average Resting Tone: 25 [place] Units (mmHg): 225 Datetime: 09/06/2021 03:02 Pain Assessment Comments: pain resolved with repositioning and bolus Datetime: 09/06/2021 02:46 Vital Sign Comments: Upper extremity shakes, BP taken during UC Datetime: 09/06/2021 02:07 Vaginal Bleeding: Small Datetime: 09/06/2021 02:01 Respirations: 18 Datetime: 09/06/2021 01:20 PATIENT CARE IV/Blood Work: New IV Bag Hung Datetime: 09/06/2021 01:11 Oxygen Method: Non-Rebreather Datetime: 09/06/2021 00:20 Cervix, Consistency: Soft Cervix, Position: Anterior Datetime: 09/06/2021 00:01 Chester Units (mmHg): 255 Datetime: 09/05/2021 23:45 MATERNAL ASSESSMENT Level of Consciousness: Alert DTR's/Clonus: DTRs 1+ Headache: Denies Breath Sounds, Left: Clear and Equal Breath Sounds, Right: Clear and Equal Nausea/Vomiting: Hx of Nausea/Vomiting RUQ Epigastric Pain: Denies Comfort Measures: Breathing/Relaxation; Family Support Datetime: 09/05/2021 22:29 Hygiene: Ashlee Care Anesthesia Comments: left hip painful with contractions. Pt. place on left later and PECA pushed. Will cont. to monitor. Datetime: 09/05/2021 21:32 Medication Comments: LR bolus 300ml Datetime: 09/05/2021 19:45 Analgesics/Sedatives: Tylenol (mg) @ 500 Datetime: 09/05/2021 18:44 Epidural Procedure: Completed Datetime: 09/05/2021 18:41 Epidural Procedure Other: Pump Started Datetime: 09/05/2021 18:26 ANESTHESIA Anesthesia Plans: Local Datetime: 09/05/2021 18:25 Epidural Positioning: Sitting Datetime: 09/05/2021 15:16 Monitor Interventions for FHR: FSE Applied Datetime: 09/05/2021 13:25 SpO2 (%): 100 Datetime: 09/05/2021 10:06 Strip Reviewed by: Dr. Amagwula Datetime: 09/05/2021 03:38 PROCEDURE TIME OUT Procedure Verify: Correct Patient Identity; Correct Side and Site are Marked; Accurate Procedure Co nsent Form; Agreement on Procedure to be Done; Correct Patient Position Datetime: 09/04/2021 19:57 Membrane Status: Ruptured Membranes Rupture Method: Spontaneous Amniotic Fluid Color: Clear Amniotic Fluid Amount: Large
== END 2021-09-08 13:45 | disposition home or self-care (01) | DRG 786 ==
LOC: WFO 17:00 → FBP 17:02 → WFO 19:15 → FBP 19:16
PROVIDERS: ADMIT Obstetrics & Gynecology; ATTEND Obstetrics & Gynecology
PROC: 3E033VJ Introduction of Other Hormone into Peripheral Vein, Percutaneous Approach (ICD-10-PCS; 2021-09-04)
PROC: 10H07YZ Insertion of Other Device into Products of Conception, Via Natural or Artificial Opening (ICD-10-PCS; 2021-09-05)
PROC: 10D00Z1 Extraction of Products of Conception, Low, Open Approach (ICD-10-PCS; principal; 2021-09-06 07:15)
DX: O13.4 Gestational [pregnancy-induced] hypertension without significant proteinuria, complicating childbirth (principal); O41.1230 Chorioamnionitis, third trimester, not applicable or unspecified; O99.892 Other specified diseases and conditions complicating childbirth; O76 Abnormality in fetal heart rate and rhythm complicating labor and delivery; O33.9 Maternal care for disproportion, unspecified; R00.0 Tachycardia, unspecified; Z3A.38 38 weeks gestation of pregnancy; Z37.0 Single live birth; O90.81 Anemia of the puerperium; D64.9 Anemia, unspecified
CPT/HCPCS: 36415; 80053; 81003; 82570; 84156; 85025; 85027; 86850; 86900; 86901; 93005; 99215; A9270; J0131; J7120; 81001; 87086

== ENCOUNTER 2022-11-06 08:07 | Outpatient (CLI) | payer OTHER ==
[2022-11-06 15:20] LABS: BASOPHILS % (AUTO) 0.5 %; EOSINOPHILS # (AUTO) 0.1 10^3/uL (0.0-0.7); EOSINOPHILS % (AUTO) 1.5 %; HCT - HEMATOCRIT 42.7 % (37.0-47.0); HGB - HEMOGLOBIN 13.3 g/dL (12.0-16.0); LYMPHOCYTES # (AUTO) 2.5 10^3/uL (1.5-3.5); LYMPHOCYTES % (AUTO) 29.1 %; MEAN CORPUSCULAR HEMOGLOBIN 29.8 pg (27.0-31.0); MEAN CORPUSCULAR HGB CONC 31.1 g/dL (32.0-36.0); MEAN CORPUSCULAR VOLUME 95.5 fL (81.0-99.0); MEAN PLATELET VOLUME 11.7 fL (7.9-10.8); MONOCYTES # (AUTO) 0.6 10^3/uL (0.0-1.0); MONOCYTES % (AUTO) 7.4 %; NEUTROPHILS # (AUTO) 5.2 10^3/uL (1.5-6.6); NEUTROPHILS % (AUTO) 61.1 %; PLT - PLATELET COUNT 303 10^3/uL (130-450); RED BLOOD COUNT 4.47 10^6/uL (4.20-5.40); WHITE BLOOD COUNT 8.6 x10^3/uL (4.8-10.8)
[2022-11-06 15:33] LABS: ALBUMIN 4.6 g/dL (3.2-5.5); ALBUMIN/GLOBULIN RATIO 1.5 (1.0-2.2); ALKALINE PHOSPHATASE 46 IU/L (42-121); ALT ALANINE AMINOTRANSFERASE 13 IU/L (10-60); AST ASPARTATE AMINOTRANSFERASE 15 IU/L (10-42); BILIRUBIN,TOTAL 0.4 mg/dL (0.2-1.0); BUN - BLOOD UREA NITROGEN 14 mg/dL (6-20); CALCIUM 9.7 mg/dL (8.5-10.3); CARBON DIOXIDE - CO2 27 mmol/L (21-32); CHLORIDE 103 mmol/L (101-111); CHOL/HDL RATIO 2.8 (<4.4); CHOLESTEROL 207 mg/dL; CREATININE 0.8 mg/dL (0.6-1.3); GFR - MDRD 82 (>89); GLUCOSE 80 mg/dL (74-104); HDL CHOLESTEROL 73 mg/dL; LDL CHOLESTEROL,CALCULATED 90 mg/dL; LDL/HDL RATIO 1.2 (<4.4); POTASSIUM 3.9 mmol/L (3.5-4.5); SODIUM 136 mmol/L (135-145); TOTAL PROTEIN 7.6 g/dL (6.4-8.9); TRIGLYCERIDES 219 mg/dL (48-352); VLDL CHOLESTEROL 44 mg/dL
== END 2022-11-06 08:08 | disposition home or self-care (01) ==
LOC: LAB.S 08:07
PROVIDERS: ATTEND Registered Nurse
DX: R03.0 Elevated blood-pressure reading, without diagnosis of hypertension (principal); Z79.899 Other long term (current) drug therapy; E78.5 Hyperlipidemia, unspecified
CPT/HCPCS: 36415; 80053; 80061; 83721; 84443; 85025